=== PATIENT | female | born 1980 | race Caucasian/White ===

== ENCOUNTER 2017-01-24 08:04 | Emergency (ER) | payer OTHER ==
[~2017-01-24 08:04] MED LIST: AMOXICILLIN500 M1 PO; BACTRIM DS TABL1 TA1 PO; FLEXERIL10 MG PO; NAPROSYN500 MG PO; NO MEDICATIONS; TYLENOL #3 PO
== END 2017-01-24 08:20 | disposition home or self-care (01) ==
LOC: SED 08:04
DX: L72.9 Follicular cyst of the skin and subcutaneous tissue, unspecified (principal)
CPT/HCPCS: 99282